=== PATIENT | male | born 1970 | race Caucasian/White ===

== ENCOUNTER 2017-07-09 16:06 | Emergency (ER) | payer MEDICAID, OTHER ==
[2017-07-09 16:17] VITALS: TEMP 98.2
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
[2017-07-09] MEDS ORDERED: CEPHALEXIN 500 MG CAP PO ONE (17:16)
[2017-07-09] MEDS ORDERED: IBUPROFEN 200 MG TAB PO ONE (17:16)
[2017-07-09 17:29] VITALS: BP 95/61; PULSE 87; RESP 16; O2SAT 97
== END 2017-07-09 17:30 | disposition home or self-care (01) ==
DX: L03.115 Cellulitis of right lower limb (principal); F17.200 Nicotine dependence, unspecified, uncomplicated; W22.8XXA Striking against or struck by other objects, initial encounter; Y99.8 Other external cause status; Y93.89 Activity, other specified